=== PATIENT | female | born 1945 | race Caucasian/White ===

== ENCOUNTER 2019-05-25 09:36 | Outpatient (CLI) | payer MEDICARE, OTHER ==
--- NOTE | 2019-05-25 13:43 | CT ---
CT FACE WITH AND WITHOUT CONTRAST: Date: 05/25/2019 COMPARISON: None. HISTORY: Lesion of right mandibular ascending ramus associated with mandibular foramen. TECHNIQUE: Axial CT imaging at 2.5 mm intervals through the facial bones with and without IV contrast. Coronal a nd sagittal reformatted imaging obtained. FINDINGS: Partially imaged brain parenchymal grossly unremarkable. Frontal sinuses, maxillary sinuses, mastoid air cells, and sphenoid sinuses appear grossly unremarkable. There is asymmetric soft tissue density within the region of the sella turcica on the right with nona ation of the pituitary stalk to the left. This soft tissue density in the region of the pituitary gla nd on the right measures at least 1.7 cm in craniocaudal dimension. This abnormal soft tissue extends into the region of the cavernous sinus on the right, not optimally assessed on this examination. The retroantral and the parapharyngeal fat appears clear bilaterally. Mildly prominent but nonenlarged Level IIA nodes are present bilaterally. The mandibular foramen on the right is enlarged when compared to the left. There is associated thinni ng of the bone in this region with fat density within the expanded right mandibular foramen between t he thinned cortex and the neurovascular bundle. No enhancing soft tissue mass is seen in this region. This fat density measures 1.2 cm AP dimension and 1.6 cm in transverse dimension. No enhancing soft tissue component. No evidence for bone erosion or destruction. Imaged parotid and submandibular glands are unremarkable. Incompletely imaged anterior diskectomy and fusion hardware noted within the cervical spine. Multilev el upper cervical spine facet and uncovertebral osteophyte formation with no discrete lytic or blasti c bone lesion. IMPRESSION: 1. 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 Recomm end brain MRI with and without contrast using a pituitary mass protocol. 2. Mandibular foramen on the right is expanded with adjacent osseous thinning. The contents of this enlarged mandibular foramen demonstrate homogeneous fat density which suggests invagination of normal fat in this region and/or lipoma. No bone destruction or soft tissue component. CODE T. POS: OFF
[2019-05-25] MEDS ORDERED: Iopamidol 370 76% 100 ML VIAL ONE (14:40)
== END 2019-05-25 09:37 | disposition home or self-care (01) ==
LOC: CT 09:36
PROVIDERS: ATTEND Oral & Maxillofacial Surgery
DX: D16.5 Benign neoplasm of lower jaw bone (principal); M27.8 Other specified diseases of jaws
CPT/HCPCS: 70488; 82565; Q9967

== ENCOUNTER 2019-10-04 11:53 | Inpatient (IN) | payer MEDICARE, OTHER ==
--- NOTE | 2019-10-04 12:35 | RAD ---
EXAM: Single view of the chest HISTORY: Chest pain COMPARISON: None FINDINGS: Single view of the chest shows a normal sized cardiomediastinal silhouette. There is no dimtry dence of consolidation, mass, or pleural effusion. Degenerative changes and a spinal stimulation device are seen in the spine. IMPRESSION: No evidence of acute cardiopulmonary disease
[2019-10-04 12:58] LABS: #Monocytes 0.3 thou/uL (0.11-0.59); #Neutrophils 2.7 thou/uL (1.40-6.50); %Eosinophils 0.6 % (0.0-10.0); %Neutrophils 67.3 % (42.0-75.0); Hemoglobin 14.4 g/dL (12.0-16.0); Mean Corpuscular HGB CONC 33.7 g/dL (32.0-36.0); Mean Corpuscular Hemoglobin 29.2 pg (27.0-31.0); Mean Corpuscular Volume 86.8 fL (78.0-98.0); Mean Platelet Volume 7.5 fL (7.4-10.4); Platelet Count 180 thou/uL (130-400); RBC Distribution Width 13.5 % (11.5-14.5); Red Blood Cell (RBC) Count 4.92 mill/uL (4.20-5.40)
[2019-10-04] MEDS ORDERED: Enoxaparin Sodium 80 MG/0.8 ML SYRINGE ONE (13:07)
[2019-10-04 13:17] LABS: ALT (SGPT) 32 U/L (8-55); AST (SGOT) 44 U/L (5-34); Albumin 3.9 g/dL (3.4-4.8); Alkaline Phosphatase 121 U/L (40-110); Anion Gap 14 mmol/L (10-20); BUN (Urea Nitrogen) 11 mg/dL (9.8-20.1); Bilirubin, Total 0.6 mg/dL (0.2-1.2); Calc. Creatinine Clearance 0 mL/min (70-130); Calcium 8.9 mg/dL (7.8-10.44); Carbon Dioxide 28 mmol/L (23-31); Chloride 102 mmol/L (98-107); Estimated GFR-MDRD 73; Globulin 3.2 g/dL (2.4-3.5); Glucose 86 mg/dL (83-110); Potassium 3.5 mmol/L (3.5-5.1); Protein, Total 7.1 g/dL (6.0-8.3); Sodium 140 mmol/L (136-145)
[2019-10-04 13:55] LABS: Bilirubin Negative (Negative); Blood, Urine Negative (Negative); Clarity Clear (Clear); Glucose, Urine (Dipstick) Normal (Negative); Ketone, Urine Negative (Negative); Leukocyte Negative Leu/uL (Negative); Nitrite Negative (Negative); Protein, Urine (Dipstick) 20 mg/dL (Neg-Trace); Urobilinogen Normal mg/dL (Less than 2)
[2019-10-04 14:21] LABS: CKMB 0.8 ng/mL (0-6.6)
[2019-10-04 17:24] LABS: Troponin I 0.039 ng/mL (< 0.028)
[2019-10-04 20:47] LABS: Troponin I 0.049 ng/mL (< 0.028)
[2019-10-04] MEDS ORDERED: Acetaminophen 325 MG TAB PO PRN (21:14)
--- NOTE | 2019-10-04 22:25 | HP ---
PRIMARY CARE PHYSICIAN: Dr. Castillo in [place]. CHIEF COMPLAINT: Weakness. HISTORY OF PRESENT ILLNESS: The patient is a 73-year-old female with past medical history of high cholesterol and hypertension. She presents today after being sick with a cough last week. She went and saw her physician and received a Medrol Dosepak and a Z -Lopez which she finished both. Over the last week, her cough has gotten worse. She has been having to use numerous breathing treatments daily. In addition, she went and saw her physician in [place] and while there she became weak so they sent her to [facility]. While here in the ER, she was discovered to have new onset atrial fibrillation. She does say that her stomach has been more active today than it has been with diarrhea. She denies fever, sick contacts, chest pain, or shortness of breath. Today in the ER, they completed EKG, lab work, chest xray, and a COVID screen. PAST MEDICAL HISTORY: High cholesterol and hypertension. PAST SURGICAL HISTORY: Eight back surgeries, appendectomy, cholecystectomy, and hysterectomy. ALLERGIES: LEVAQUIN. MEDICATIONS: The patient is unable to recall her medications at this time, we will obtain the list. SOCIAL HISTORY: The patient is retired and lives in a house with her . She denies smoking, alcohol, or illicit drug use. FAMILY HISTORY: Negative for any pertinent information at this time. REVIEW OF SYSTEMS: All other review of systems are negative unless noted in the HPI. PHYSICAL EXAMINATION: VITAL SIGNS: Blood pressure 145/90, pulse 95, respiratory rate 24, temperature 98.7, O2 saturation 96% on 2 L. GENERAL: The patient is alert and oriented. Appears nontoxic. HEENT: Head; atraumatic and normocephalic. PERRLA. Extraocular muscles intact. Conjunctiva normal. NECK: No lymphadenopathy. Trachea midline. Supple. RESPIRATORY: Clear to auscultation bilaterally. No wheezing. No rales. No rhonchi. Normal chest expansion. CARDIOVASCULAR: Irregular rate and rhythm. Slightly tachycardic. No murmurs. No rubs. No gallops. ABDOMEN: Hyperactive bowel sounds. Nontender. No distention. No masses. EXTREMITIES: No cyanosis. No clubbing. No edema. NEUROLOGIC: No focal sensory deficits. PSYCH: Normal affect. Normal behavior. LABORATORY STUDIES: EKG showed rate of 86, atrial fibrillation. Troponin 0.037 , CK-MB 0.8. UA was negative for signs of acute UTI. Sodium 140, potassium 3.5, BUN 11, creatinine 0.77, GFR 73, alkaline phosphatase 121, AST 44, lactic acid 1.2. White blood cells 4, hemoglobin 14.4, hematocrit 42.7. DIAGNOSTIC STUDIES: Chest x-ray showed no evidence of acute cardiopulmonary disease. IMPRESSION: 1. New onset afib, acute. We will consult Cardiology and start the patient on Lovenox 1 mcg/kg twice daily. We will also obtain an echo in the morning and monitor her on telemetry overnight. 2. Malaise, acute. COVID swab pending at this time. We will monitor patient's vital signs throughout the night. Denies any sick contacts. Start her on treatment if her swab comes out positive. Her was also checked in the ER today for same symptoms and was also tested for COVID. 3. Hyperlipidemia, chronic, stable. Continue home medications. 4. Hypertension, chronic, stable. We will continue home medications and continue to monitor throughout the evening. 5. GI and DVT prophylaxis in place. 6. The patient wishes to be full code and her surrogate decision maker is her . Job ID: [id number] [facility]
[2019-10-04] MEDS ORDERED: Enoxaparin Sodium 80 MG/0.8 ML SYRINGE SC SCH (23:00)
[2019-10-04] MEDS ORDERED: Famotidine 20 MG TAB PO SCH (23:00)
[2019-10-04 23:03] VITALS: BMI 32.6
[2019-10-04 23:39] LABS: Troponin I 0.039 ng/mL (< 0.028)
[2019-10-05] MEDS: HYDROcodone/Acetaminophen 7.5/325 mg Tablet PO PRN ×4 (00:22→21:14)
[2019-10-05] MEDS ORDERED: Loperamide HCl 2 MG CAP PO SCH (01:30)
[2019-10-05 05:12] LABS: #Lymphocytes 1.3 thou/uL (1.20-3.40); #Monocytes 0.3 thou/uL (0.11-0.59); #Neutrophils 2.2 thou/uL (1.40-6.50); %Basophils 0.8 % (0.0-1.0); %Eosinophils 0.8 % (0.0-10.0); %Lymphocytes 34.5 % (21.0-51.0); %Monocytes 8.3 % (0.0-10.0); %Neutrophils 55.6 % (42.0-75.0); Hemoglobin 13.5 g/dL (12.0-16.0); Mean Corpuscular HGB CONC 34.6 g/dL (32.0-36.0); Mean Corpuscular Hemoglobin 29.8 pg (27.0-31.0); Mean Corpuscular Volume 86.1 fL (78.0-98.0); Mean Platelet Volume 8.1 fL (7.4-10.4); Platelet Count 179 thou/uL (130-400); RBC Distribution Width 13.4 % (11.5-14.5); Red Blood Cell (RBC) Count 4.52 mill/uL (4.20-5.40); White Blood Cell (WBC) Count 3.9 thou/uL (4.8-10.8)
[2019-10-05] MEDS: Levothyroxine Sodium 75 MCG TAB PO SCH (05:25)
[2019-10-05 05:31] LABS: Anion Gap 12 mmol/L (10-20); BUN (Urea Nitrogen) 10 mg/dL (9.8-20.1); CRP (Inflammatory) 8.84 mg/dL (= or < 0.5); Calc. Creatinine Clearance 98 mL/min (70-130); Calcium 8.3 mg/dL (7.8-10.44); Carbon Dioxide 25 mmol/L (23-31); Chloride 104 mmol/L (98-107); Estimated GFR-MDRD 82; Glucose 84 mg/dL (83-110); Sodium 138 mmol/L (136-145)
[2019-10-05 05:38] LABS: Potassium 2.8 mmol/L (3.5-5.1)
[2019-10-05] MEDS: Famotidine 20 MG TAB PO SCH ×2 (08:37→19:45)
[2019-10-05] MEDS: Potassium Chloride 20 MEQ TAB PO SCH ×2 (08:37→09:02)
[2019-10-05] MEDS ORDERED: Enoxaparin Sodium 80 MG/0.8 ML SYRINGE SC SCH (09:00)
[2019-10-05] MEDS ORDERED: Potassium Chloride 20 MEQ TAB PO SCH (12:00)
[2019-10-05 12:29] LABS: SARS-CoV-2 MS2 Positive; SARS-CoV-2 N Gene Positive; SARS-CoV-2 S Gene Positive; SARS-CoV-2 orf1ab Positive
[2019-10-05] MEDS ORDERED: Dexamethasone 10 MG/ML VIAL SLOW IVP SCH ×2 (13:00→15:30)
[2019-10-05 13:39] LABS: Anion Gap 15 mmol/L (10-20); BUN (Urea Nitrogen) 11 mg/dL (9.8-20.1); Calc. Creatinine Clearance 95 mL/min (70-130); Calcium 8.8 mg/dL (7.8-10.44); Carbon Dioxide 24 mmol/L (23-31); Chloride 104 mmol/L (98-107); Estimated GFR-MDRD 79; Glucose 92 mg/dL (83-110); Magnesium 1.8 mg/dL (1.6-2.6); Sodium 139 mmol/L (136-145)
--- NOTE | 2019-10-05 16:29 | PDOC.HOSPP ---
- Subjective Encounter Date: 10/05/19 Encounter Time: 10:00 Subjective: pt up in bed is having diarrhea. - Objective Vital Signs & Weight: Vital Signs (12 hours) Temp Pulse Resp BP Pulse Ox 10/05/19 12:00 98.6 F 69 14 154/72 H 96 10/05/19 08:45 99.0 F 64 18 153/67 H 95 10/05/19 05:31 98.2 F 64 20 147/70 H 95 Weight Weight 190 lb 4.8 oz Result Diagrams: 10/05/19 04:34 10/05/19 13:04 Hospitalist ROS - Review of Systems Respiratory: denies: cough, dry, shortness of breath, hemoptysis, SOB with excertion, pleuritic pain, sputum, wheezing, other Cardiovascular: denies: chest pain, palpitations, orthopnea, paroxysmal noc. dyspnea, edema, light headedness, other Gastrointestinal: reports: diarrhea Genitourinary: denies: dysuria, frequency, incontinence, hematuria, retention, other Musculoskeletal: denies: neck pain, shoulder pain, arm pain, back pain, hand pain, leg pain, foot pain, other - Medication Medications: Active Medications Generic Name Dose Route Start Last Admin Trade Name Freq PRN Reason Stop Dose Admin Hydrocodone Bitart/Acetaminophen 1 tab 10/05/19 00:01 10/05/19 15:50 [place] 7.5/325 PO 1 tab Q6HR PRN Administration Moderate Pain (4-6) Dexamethasone 10 mg 10/05/19 15:30 10/05/19 15:37 Decadron SLOW IVP 10/05/19 17:30 10 mg NOW LOYDA Administration Enoxaparin Sodium 80 mg 10/05/19 09:00 10/05/19 08:38 Lovenox SC 80 mg 0900,2100 LOYDA Administration Famotidine 20 mg 10/05/19 09:00 10/05/19 08:37 Pepcid PO 20 mg BID LOYDA Administration Levothyroxine Sodium 75 mcg 10/05/19 06:00 10/05/19 05:25 Synthroid PO 75 mcg 0600 LOYDA Administration Sertraline HCl 100 mg 10/05/19 09:00 10/05/19 08:38 Zoloft PO 100 mg BID LOYDA Administration - Exam Neck: negative: supple, symmetric, no JVD, no thyromegaly, no lymphadenopathy, no carotid bruit, JVD Heart: negative: RRR, no murmur, no gallops, no rubs, normal peripheral pulses, irregular, diminshed peripheral pulses, murmur present, II/IV, III/IV Respiratory: rales Gastrointestinal: negative: soft, non-tender, non-distended, normal bowel sounds , no palpable masses, no hepatomegaly, no splenomegaly, no bruit, no guarding, no rigidity, tender to palpation, distended, diminished bowl sounds, voluntary guarding Hosp A/P (1) COVID-19 Code(s): U07.1 - COVID-19 Status: Acute (2) New onset a-fib Code(s): I48.91 - UNSPECIFIED ATRIAL FIBRILLATION Status: Acute (3) Hypothyroid Code(s): E03.9 - HYPOTHYROIDISM, UNSPECIFIED Status: Acute - Plan will continue current tx with dexamethasone/vit c and zinc. pt does not take steroids at home. will change Lovenox to eliquis. pt now is SR.
[2019-10-05] MEDS: Apixaban 5 MG TAB PO SCH (19:45)
[2019-10-05] MEDS ORDERED: tiZANidine HCl 4 MG TAB PO SCH (20:45)
[2019-10-05] MEDS ORDERED: Prevnar 13-Val Conj/PF 0.5 ML SYRINGE IM ONE (21:00)
[2019-10-06 01:30] LABS: Anion Gap 13 mmol/L (10-20); BUN (Urea Nitrogen) 12 mg/dL (9.8-20.1); Calc. Creatinine Clearance 90 mL/min (70-130); Calcium 8.6 mg/dL (7.8-10.44); Carbon Dioxide 23 mmol/L (23-31); Chloride 104 mmol/L (98-107); Estimated GFR-MDRD 75; Glucose 199 mg/dL (83-110); Magnesium 1.9 mg/dL (1.6-2.6); Potassium 3.8 mmol/L (3.5-5.1); Sodium 136 mmol/L (136-145)
[2019-10-06 04:28] LABS: Hemoglobin 12.5 g/dL (12.0-16.0); Platelet Count 180 thou/uL (130-400)
[2019-10-06 04:53] LABS: Troponin I 0.016 ng/mL (< 0.028)
[2019-10-06] MEDS: Levothyroxine Sodium 75 MCG TAB PO SCH (05:33)
[2019-10-06] MEDS ORDERED: predniSONE 5 MG TAB PO SCH (08:00)
[2019-10-06] MEDS: Hydrochlorothiazide 25 MG TAB PO SCH (09:01)
[2019-10-06] MEDS: Zinc Sulfate 220 MG CAP PO SCH (09:01)
[2019-10-06] MEDS: Apixaban 5 MG TAB PO SCH (09:01)
[2019-10-06] MEDS: Ezetimibe 10 MG TAB PO SCH (09:01)
[2019-10-06] MEDS: Famotidine 20 MG TAB PO SCH (09:01)
[2019-10-06] MEDS: Dexamethasone 4 MG TAB PO SCH (09:01)
[2019-10-06] MEDS: Rosuvastatin 10 MG TAB PO SCH (09:01)
[2019-10-06] MEDS: Furosemide 40 MG TAB PO SCH (09:02)
[2019-10-06] MEDS: Ascorbic Acid 500 mg Chewable Tablet PO SCH (09:02)
[2019-10-06] MEDS ORDERED: Atropine Sulfate 1 mg/10 ml Syringe IVP PRN ×2 (12:45→15:46)
--- NOTE | 2019-10-06 15:08 | CON ---
DATE OF CONSULTATION: HISTORY OF PRESENT ILLNESS: Anita Saravia is a 73-year-old white female from [place], [place], who presented to the emergency room for evaluation of cough and feeling poorly for the past week. She was given a Medrol Dosepak and a Z-Lopez by her doctor in [place]. She continued to have cough and then started to have significant diarrhea. She denies any significant fever. She came to the emergency room as her daughter works at the hospital here and was in atrial fibrillation. It is unclear if she developed that while in the ER or if she presented with that. Her rates were fairly well controlled and as best I can tell from looking through the medical record, she was not placed on any specific treatment for that. She was tested positive for COVID. She did have an episode of significant tachycardia with rates of 160 to 190 per minute with the atrial fibrillation on 10/03 at 2327 hours. She was trying to have a bowel movement at the time. Apparently, this resolved without any treatment. Then on 10/04 at 3:35 a.m., she went to sinus rhythm. She then had an episode early this morning on 10/05 at 0046 hours. She states she became very weak, diaphoretic, and EKG shows a heart rate of 39 per minute with extreme sinus bradycardia. At home, she denies ever having any lightheadedness, dizziness, or syncopal episodes. She denies feeling any palpitations at home. She denies any chest discomfort. She does have mild shortness of breath. PAST MEDICAL HISTORY: 1. Hypercholesterolemia. 2. Hypertension. 3. Hypothyroidism. OPERATIONS: 1. Multiple back surgeries. 2. Appendectomy. 3. Cholecystectomy. 4. Hysterectomy. HOME MEDICATIONS: 1. Vitamin D3 at 1000 units daily. 2. Esomeprazole 40 mg daily. 3. Zetia 10 mg daily. 4. Furosemide 40 mg q.a.m. 5. Hydrochlorothiazide 25 q.a.m. 6. Vanderbilt p.r.n. 7. Levoxyl 75 mcg daily. 8. Prednisone 10 mg daily. 9. Rosuvastatin 10 mg daily. 10. Zoloft 100 mg b.i.d. 11. Tizanidine 4 mg q.8 h. p.r.n. ALLERGIES: LEVAQUIN. SOCIAL HISTORY: She has never smoked. She does not drink. FAMILY HISTORY: Father had coronary artery disease. REVIEW OF SYSTEMS: A 10-point review of systems unremarkable except as noted above. PHYSICAL EXAMINATION: VITAL SIGNS: Blood pressure 165/74 and pulse of 51. HEENT: PERRL. NECK: Supple. CHEST: Clear. CARDIAC: S1 and S2 are normal without any S3 or S4. There is a 1/6 systolic murmur along the left sternal border. ABDOMEN: Normal bowel sounds without tenderness or organomegaly. EXTREMITIES: No clubbing, cyanosis, or edema. NEUROLOGIC: Grossly intact. LABORATORY DATA: Most recent EKG when she was diaphoretic had sinus rhythm with a rate of 39 per minute with poor R-wave progression. CBC is unremarkable except for a white count of 3900. D-dimer 1.43. -Troponin I is as high as 0.049. TSH is normal. Glucose 199, sodium 136, potassium 3.8, chloride 104, carbon dioxide 23 , BUN 12, and creatinine 0.76. She did have a potassium of 2.8 the day after admission. IMPRESSION: 1. COVID positive with cough and diarrhea. Main symptoms are cough and diarrhea. The diarrhea appears to have resolved from what the patient stating. 2. Sick sinus syndrome with episode of atrial fibrillation when she presented with very fast rates when she was having a bowel movement. She also has had significant bradycardia, which historically does not sound as if she has had problems with this in the past. 3. Hypertension. 4. Hypercholesterolemia. 5. Hypothyroidism. RECOMMENDATIONS: The patient currently is on Eliquis and I will change this back to Lovenox, so that in case pacemaker is needed, we would not have to wait 48 hours. Certainly, near the time of discharge, the Eliquis should probably be resumed. Also, I will have atropine placed into her room. She may need to be placed on low-dose dobutamine. Certainly, her bradycardia may be related to the COVID, however, it is unclear to me if this is a permanent finding or just temporary bradycardia during the infectious process. When she has resolved from COVID, we will further evaluate this problem. Job ID: [id number] [facility]TDD
[2019-10-06] MEDS: HYDROcodone/Acetaminophen 7.5/325 mg Tablet PO PRN ×2 (17:04→23:01)
[2019-10-06] MEDS: Enoxaparin Sodium 80 MG/0.8 ML SYRINGE SC SCH (20:05)
[2019-10-07] MEDS: Levothyroxine Sodium 75 MCG TAB PO SCH (05:26)
[2019-10-07] MEDS: HYDROcodone/Acetaminophen 7.5/325 mg Tablet PO PRN ×2 (05:26→20:34)
[2019-10-07] MEDS: Ezetimibe 10 MG TAB PO SCH (07:43)
[2019-10-07] MEDS: Dexamethasone 4 MG TAB PO SCH (07:43)
[2019-10-07] MEDS: Enoxaparin Sodium 80 MG/0.8 ML SYRINGE SC SCH ×2 (07:43→20:22)
[2019-10-07] MEDS: Furosemide 40 MG TAB PO SCH (07:44)
[2019-10-07] MEDS: Rosuvastatin 10 MG TAB PO SCH (07:44)
[2019-10-07] MEDS: Hydrochlorothiazide 25 MG TAB PO SCH (07:44)
[2019-10-07] MEDS: Ascorbic Acid 500 mg Chewable Tablet PO SCH (07:44)
[2019-10-07] MEDS: Zinc Sulfate 220 MG CAP PO SCH (07:49)
--- NOTE | 2019-10-07 09:42 | PDOC.HOSPP ---
- Subjective Encounter Date: 10/06/19 Encounter Time: 10:30 Subjective: pt up in bed states her diarrhea has improved but she had bradycardia. - Objective Vital Signs & Weight: Vital Signs (12 hours) Temp Pulse Resp BP BP BP BP 10/07/19 08:00 98.5 F 49 L 18 179/75 H 10/07/19 05:35 172/77 H 162/66 H 161/74 H 10/07/19 04:03 98.0 F 54 L 14 163/71 H 10/06/19 23:05 98.6 F 49 L 17 172/72 H Pulse Ox 10/07/19 08:00 93 L 10/07/19 05:35 10/07/19 04:03 94 L 10/06/19 23:05 93 L Weight Weight 190 lb 4.8 oz I&O: 10/06/19 10/07/19 10/08/19 06:59 06:59 06:59 Intake Total 700 250 Balance 700 250 Result Diagrams: 10/06/19 04:15 10/06/19 04:15 Hospitalist ROS - Review of Systems Cardiovascular: denies: chest pain, palpitations, orthopnea, paroxysmal noc. dyspnea, edema, light headedness, other Gastrointestinal: denies: nausea, vomiting, abdominal pain, diarrhea, constipation, melena, hematochezia, other Genitourinary: denies: dysuria, frequency, incontinence, hematuria, retention, other - Medication Medications: Active Medications Generic Name Dose Route Start Last Admin Trade Name Freq PRN Reason Stop Dose Admin Hydrocodone Bitart/Acetaminophen 1 tab 10/05/19 00:01 10/07/19 05:26 [place] 7.5/325 PO 1 tab Q6HR PRN Administration Moderate Pain (4-6) Ascorbic Acid 1,000 mg 10/06/19 09:00 10/07/19 07:44 Vitamin C PO 1,000 mg DAILY LOYDA Administration Dexamethasone 6 mg 10/06/19 08:00 10/07/19 07:43 Decadron PO 10/15/19 08:01 6 mg QAM-WM LOYDA Administration Ezetimibe 10 mg 10/06/19 09:00 10/07/19 07:43 Zetia PO 10 mg DAILY LOYDA Administration Enoxaparin Sodium 80 mg 10/06/19 21:00 10/07/19 07:43 Lovenox SC 80 mg 0900,2100 LOYDA Administration Furosemide 40 mg 10/06/19 09:00 10/07/19 07:44 Lasix PO 40 mg DAILY LOYDA Administration Hydrochlorothiazide 25 mg 10/06/19 09:00 10/07/19 07:44 Hydrochlorothiazide PO 25 mg DAILY LOYDA Administration Levothyroxine Sodium 75 mcg 10/05/19 06:00 10/07/19 05:26 Synthroid PO 75 mcg 0600 LOYDA Administration Pantoprazole Sodium 40 mg 10/07/19 09:00 10/07/19 07:44 Protonix PO 40 mg DAILY LOYDA Administration Rosuvastatin Calcium 10 mg 10/06/19 09:00 10/07/19 07:44 Crestor PO 10 mg DAILY LODYA Administration Sertraline HCl 100 mg 10/05/19 09:00 10/07/19 07:45 Zoloft PO 100 mg BID LOYDA Administration Zinc Sulfate 220 mg 10/06/19 09:00 10/07/19 07:49 Zinc Sulfate PO 220 mg DAILY LOYDA Administration - Exam Neck: negative: supple, symmetric, no JVD, no thyromegaly, no lymphadenopathy, no carotid bruit, JVD Heart: negative: RRR, no murmur, no gallops, no rubs, normal peripheral pulses, irregular, diminshed peripheral pulses, murmur present, II/IV, III/IV Respiratory: negative: CTAB, no wheezes, no rales, no ronchi, normal chest expansion, no tachypnea, normal percussion, rales, rhonchi, tachypneic, wheezes Gastrointestinal: negative: soft, non-tender, non-distended, normal bowel sounds , no palpable masses, no hepatomegaly, no splenomegaly, no bruit, no guarding, no rigidity, tender to palpation, distended, diminished bowl sounds, voluntary guarding Hosp A/P (1) COVID-19 Code(s): U07.1 - COVID-19 Status: Acute (2) New onset a-fib Code(s): I48.91 - UNSPECIFIED ATRIAL FIBRILLATION Status: Acute (3) Hypothyroid Code(s): E03.9 - HYPOTHYROIDISM, UNSPECIFIED Status: Acute - Plan will continue current tx with dexamethasone/vit c and zinc. pt does not take steroids at home. will change Lovenox to eliquis. pt now is SR. 10/05 pt was bradycardiac last night and symptomatic. pt's diarrhea is improving. will call cardiology to see pt. she is not on any bb or calcium kevin. she is on AC. pt may need pacemaker. Pt's crp is improving and clinically she feels better in regards to sob.
[2019-10-07] MEDS ORDERED: Lisinopril 10 MG TAB PO SCH (12:45)
--- NOTE | 2019-10-07 19:32 | PDOC.HOSPP ---
- Subjective Encounter Date: 10/07/19 Encounter Time: 12:30 Subjective: pt up in bed feels well - Objective Vital Signs & Weight: Vital Signs (12 hours) Temp Pulse Resp BP Pulse Ox 10/07/19 12:35 98.4 F 58 L 18 155/72 H 90 L 10/07/19 08:00 98.5 F 49 L 18 179/75 H 93 L Weight Weight 190 lb 4.8 oz I&O: 10/06/19 10/07/19 10/08/19 06:59 06:59 06:59 Intake Total 700 250 Balance 700 250 Result Diagrams: 10/06/19 04:15 10/06/19 04:15 Hospitalist ROS - Review of Systems Cardiovascular: denies: chest pain, palpitations, orthopnea, paroxysmal noc. dyspnea, edema, light headedness, other Gastrointestinal: denies: nausea, vomiting, abdominal pain, diarrhea, constipation, melena, hematochezia, other Genitourinary: denies: dysuria, frequency, incontinence, hematuria, retention, other - Medication Medications: Active Medications Generic Name Dose Route Start Last Admin Trade Name Freq PRN Reason Stop Dose Admin Hydrocodone Bitart/Acetaminophen 1 tab 10/05/19 00:01 10/07/19 05:26 [place] 7.5/325 PO 1 tab Q6HR PRN Administration Moderate Pain (4-6) Ascorbic Acid 1,000 mg 10/06/19 09:00 10/07/19 07:44 Vitamin C PO 1,000 mg DAILY LOYDA Administration Dexamethasone 6 mg 10/06/19 08:00 10/07/19 07:43 Decadron PO 10/15/19 08:01 6 mg QAM-WM LOYDA Administration Ezetimibe 10 mg 10/06/19 09:00 10/07/19 07:43 Zetia PO 10 mg DAILY LOYDA Administration Enoxaparin Sodium 80 mg 10/06/19 21:00 10/07/19 07:43 Lovenox SC 80 mg 0900,2100 LOYDA Administration Furosemide 40 mg 10/06/19 09:00 10/07/19 07:44 Lasix PO 40 mg DAILY LOYDA Administration Levothyroxine Sodium 75 mcg 10/05/19 06:00 10/07/19 05:26 Synthroid PO 75 mcg 0600 LOYDA Administration Pantoprazole Sodium 40 mg 10/07/19 09:00 10/07/19 07:44 Protonix PO 40 mg DAILY LOYDA Administration Rosuvastatin Calcium 10 mg 10/06/19 09:00 10/07/19 07:44 Crestor PO 10 mg DAILY LOYDA Administration Sertraline HCl 100 mg 10/05/19 09:00 10/07/19 07:45 Zoloft PO 100 mg BID LOYDA Administration Zinc Sulfate 220 mg 10/06/19 09:00 10/07/19 07:49 Zinc Sulfate PO 220 mg DAILY LOYDA Administration - Exam Neck: negative: supple, symmetric, no JVD, no thyromegaly, no lymphadenopathy, no carotid bruit, JVD Heart: negative: RRR, no murmur, no gallops, no rubs, normal peripheral pulses, irregular, diminshed peripheral pulses, murmur present, II/IV, III/IV Respiratory: negative: CTAB, no wheezes, no rales, no ronchi, normal chest expansion, no tachypnea, normal percussion, rales, rhonchi, tachypneic, wheezes Gastrointestinal: negative: soft, non-tender, non-distended, normal bowel sounds , no palpable masses, no hepatomegaly, no splenomegaly, no bruit, no guarding, no rigidity, tender to palpation, distended, diminished bowl sounds, voluntary guarding Hosp A/P (1) COVID-19 Code(s): U07.1 - COVID-19 Status: Acute (2) New onset a-fib Code(s): I48.91 - UNSPECIFIED ATRIAL FIBRILLATION Status: Acute (3) Hypothyroid Code(s): E03.9 - HYPOTHYROIDISM, UNSPECIFIED Status: Acute (4) Bradycardia Code(s): R00.1 - BRADYCARDIA, UNSPECIFIED Status: Acute - Plan will continue current tx with dexamethasone/vit c and zinc. pt does not take steroids at home. will change Lovenox to eliquis. pt now is SR. 10/05 pt was bradycardiac last night and symptomatic. pt's diarrhea is improving. will call cardiology to see pt. she is not on any bb or calcium kevin. she is on AC. pt may need pacemaker. Pt's crp is improving and clinically she feels better in regards to sob. 10/06 pt clinically doing well she is still SB. cardiology following pt. she may need pacemaker. Atropine at bedside. she is on lovenox.
[2019-10-07] MEDS: Lisinopril 10 MG TAB PO SCH (20:23)
[2019-10-08 05:12] LABS: ALT (SGPT) 28 U/L (8-55); AST (SGOT) 34 U/L (5-34); Albumin 4.3 g/dL (3.4-4.8); Alkaline Phosphatase 117 U/L (40-110); Anion Gap 15 mmol/L (10-20); BUN (Urea Nitrogen) 30 mg/dL (9.8-20.1); Bilirubin, Total 0.7 mg/dL (0.2-1.2); Calc. Creatinine Clearance 60 mL/min (70-130); Calcium 9.6 mg/dL (7.8-10.44); Carbon Dioxide 35 mmol/L (23-31); Cardiac Risk 4.3 (Less than 4.5); Chloride 95 mmol/L (98-107); Cholesterol 145 mg/dl (< 200 Desired); Estimated GFR-MDRD 47; Globulin 3.3 g/dL (2.4-3.5); Glucose 95 mg/dL (83-110); HDL Cholesterol 34 mg/dL (>60 Neg Risk); LDL Cholesterol, Calculated 47 mg/dL; Protein, Total 7.6 g/dL (6.0-8.3); Sodium 142 mmol/L (136-145); Triglycerides 318 mg/dL (Less than 150)
[2019-10-08] MEDS: Levothyroxine Sodium 75 MCG TAB PO SCH (05:48)
[2019-10-08] MEDS: Enoxaparin Sodium 80 MG/0.8 ML SYRINGE SC SCH ×2 (08:03→19:43)
[2019-10-08] MEDS: Ezetimibe 10 MG TAB PO SCH (08:03)
[2019-10-08] MEDS: Ascorbic Acid 500 mg Chewable Tablet PO SCH (08:03)
[2019-10-08] MEDS: Dexamethasone 4 MG TAB PO SCH (08:04)
[2019-10-08] MEDS: Furosemide 40 MG TAB PO SCH (08:04)
[2019-10-08] MEDS: Lisinopril 10 MG TAB PO SCH (08:04)
[2019-10-08] MEDS: Rosuvastatin 10 MG TAB PO SCH (08:04)
[2019-10-08] MEDS: Zinc Sulfate 220 MG CAP PO SCH (08:07)
--- NOTE | 2019-10-08 18:53 | PDOC.HOSPP ---
- Subjective Encounter Date: 10/08/19 Encounter Time: 18:40 Subjective: f/u for COVID PNA stabilizing on RA. Noted with bradycardia and monitored on tele. No new symptoms noted. KIAH noted after starting Lisinopril. - Objective Vital Signs & Weight: Vital Signs (12 hours) Temp Pulse Resp BP Pulse Ox 10/08/19 12:45 98.5 F 58 L 18 127/65 91 L 10/08/19 08:00 98.5 F 60 16 107/58 L 92 L Weight Weight 190 lb 4.8 oz I&O: 10/07/19 10/08/19 10/09/19 06:59 06:59 06:59 Intake Total 250 Balance 250 Result Diagrams: 10/06/19 04:15 10/08/19 04:09 Additional Labs: Accuchecks 10/07/19 20:38 POC Glucose 120 H Laboratory Tests 10/04/19 10/04/19 10/05/19 12:38 22:27 04:34 D-Dimer Lactic Acid 1.2 Ferritin C-Reactive Protein 8.84 H COVID-19 PCR DETECTED A* 10/05/19 10/05/19 10/06/19 04:34 04:34 04:15 D-Dimer 2.13 H Lactic Acid Ferritin 191.81 C-Reactive Protein 5.00 H COVID-19 PCR 10/06/19 10/06/19 04:15 04:16 D-Dimer 1.43 H Lactic Acid Ferritin 230.08 C-Reactive Protein COVID-19 PCR EKG Reviewed by me: Yes (Tele - sinus eva in 50-60's) Hospitalist ROS - Medication Medications: Active Medications Generic Name Dose Route Start Last Admin Trade Name Freq PRN Reason Stop Dose Admin Hydrocodone Bitart/Acetaminophen 1 tab 10/05/19 00:01 10/07/19 20:34 [place] 7.5/325 PO 1 tab Q6HR PRN Administration Moderate Pain (4-6) Ascorbic Acid 1,000 mg 10/06/19 09:00 10/08/19 08:03 Vitamin C PO 1,000 mg DAILY LOYDA Administration Dexamethasone 6 mg 10/06/19 08:00 10/08/19 08:04 Decadron PO 10/15/19 08:01 6 mg QAM-WM LOYDA Administration Ezetimibe 10 mg 10/06/19 09:00 10/08/19 08:03 Zetia PO 10 mg DAILY LOYDA Administration Enoxaparin Sodium 80 mg 10/06/19 21:00 10/08/19 08:03 Lovenox SC 80 mg 0900,2100 LOYDA Administration Furosemide 40 mg 10/06/19 09:00 10/08/19 08:04 Lasix PO 40 mg DAILY LOYDA Administration Levothyroxine Sodium 75 mcg 10/05/19 06:00 10/08/19 05:48 Synthroid PO 75 mcg 0600 LOYDA Administration Pantoprazole Sodium 40 mg 10/07/19 09:00 10/08/19 08:04 Protonix PO 40 mg DAILY LOYDA Administration Rosuvastatin Calcium 10 mg 10/06/19 09:00 10/08/19 08:04 Crestor PO 10 mg DAILY LOYDA Administration Sertraline HCl 100 mg 10/05/19 09:00 10/08/19 08:04 Zoloft PO 100 mg BID LOYDA Administration Zinc Sulfate 220 mg 10/06/19 09:00 10/08/19 08:07 Zinc Sulfate PO 220 mg DAILY LOYDA Administration - Exam General Appearance: NAD, awake alert Eye: PERRL, anicteric sclera ENT: normocephalic atraumatic, no oropharyngeal lesions Neck: supple, symmetric, no JVD, no thyromegaly, no lymphadenopathy Heart: RRR, no gallops, no rubs, normal peripheral pulses Heart - other findings: S1, S2 Respiratory: CTAB, no wheezes, no rales, no ronchi, normal chest expansion Gastrointestinal: soft, non-tender, non-distended, normal bowel sounds, no palpable masses Extremities: no cyanosis, no clubbing, no edema Skin: normal turgor, no lesions Neurological: cranial nerve grossly intact, no new deficit Musculoskeletal: normal tone, normal strength, no muscle wasting Psychiatric: normal affect, A&O x 3 Hosp A/P (1) KIAH (acute kidney injury) Code(s): N17.9 - ACUTE KIDNEY FAILURE, UNSPECIFIED Status: Acute Plan: Start NS @ 75ml/h, decrease Lisinopril 10mg daily, avoid nephrotoxins and limit contrast exposure, repeat creatinine in am (2) Hypokalemia Code(s): E87.6 - HYPOKALEMIA Status: Acute Plan: KCL 40meq x 1 now and 20meq BID in am, repeat K+ level in am (3) Bradycardia Code(s): R00.1 - BRADYCARDIA, UNSPECIFIED Status: Acute Plan: Mild bradycardia, ? symptomatic (4) COVID-19 Code(s): U07.1 - COVID-19 Status: Acute Plan: Improving, supportive, no O2 requirement - Plan out of bed/ambulate, DVT proph w/SCDs Stable overall Decrease Lisinopril 10mg daily Start NS @ 75ml/hr OOB/ambulate AM lab: BMP Likely home in am
[2019-10-08] MEDS ORDERED: Potassium Chloride 20 MEQ TAB PO SCH (19:00)
[2019-10-08] MEDS: Sodium Chloride 0.9% 1,000 ML IV SCH (19:43)
[2019-10-08] MEDS: HYDROcodone/Acetaminophen 7.5/325 mg Tablet PO PRN (20:07)
[2019-10-09] MEDS: Levothyroxine Sodium 75 MCG TAB PO SCH (04:15)
[2019-10-09] MEDS: HYDROcodone/Acetaminophen 7.5/325 mg Tablet PO PRN (04:23)
[2019-10-09 05:02] LABS: Anion Gap 12 mmol/L (10-20); BUN (Urea Nitrogen) 30 mg/dL (9.8-20.1); Calc. Creatinine Clearance 74 mL/min (70-130); Carbon Dioxide 32 mmol/L (23-31); Chloride 99 mmol/L (98-107); Estimated GFR-MDRD 60; Glucose 90 mg/dL (83-110); Sodium 140 mmol/L (136-145)
[2019-10-09 05:06] LABS: Potassium 2.9 mmol/L (3.5-5.1)
[2019-10-09 06:09] LABS: Hemoglobin 14.1 g/dL (12.0-16.0); Platelet Count 240 thou/uL (130-400)
[2019-10-09] MEDS: Rosuvastatin 10 MG TAB PO SCH (07:44)
[2019-10-09] MEDS: Dexamethasone 4 MG TAB PO SCH (07:44)
[2019-10-09] MEDS: Ascorbic Acid 500 mg Chewable Tablet PO SCH (07:45)
[2019-10-09] MEDS: Zinc Sulfate 220 MG CAP PO SCH (07:45)
[2019-10-09] MEDS: Ezetimibe 10 MG TAB PO SCH (07:45)
[2019-10-09] MEDS: Enoxaparin Sodium 80 MG/0.8 ML SYRINGE SC SCH (07:46)
[2019-10-09] MEDS: Potassium Chloride 20 MEQ TAB PO SCH ×2 (07:46→16:06)
[2019-10-09] MEDS: Furosemide 40 MG TAB PO SCH (07:46)
[2019-10-09] MEDS: Sodium Chloride 0.9% 1,000 ML IV SCH (07:46)
[2019-10-09] MEDS ORDERED: Lisinopril 10 MG TAB PO SCH (09:00)
[2019-10-09] MEDS ORDERED: Potassium Chloride 20 MEQ TAB PO SCH (09:45)
[2019-10-09 15:05] LABS: Anion Gap 13 mmol/L (10-20); BUN (Urea Nitrogen) 26 mg/dL (9.8-20.1); Calc. Creatinine Clearance 76 mL/min (70-130); Carbon Dioxide 29 mmol/L (23-31); Chloride 101 mmol/L (98-107); Estimated GFR-MDRD 61; Glucose 145 mg/dL (83-110); Potassium 3.3 mmol/L (3.5-5.1); Sodium 140 mmol/L (136-145)
[2019-10-09 16:39] VITALS: BP 152/72; TEMP 98.5
--- NOTE | 2019-10-10 03:44 | DIS ---
DATE OF ADMISSION: 10/04/2019 DATE OF DISCHARGE: 10/09/2019 DISCHARGE DIAGNOSES: 1. COVID-19 viral infection. 2. Paroxysmal atrial fibrillation with current sinus mechanism. 3. Sinus bradycardia, stable. 4. Hypothyroidism. 5. Hypokalemia, resolving. 6. Acute kidney injury, iatrogenic. 7. Hypertension. CONSULTATIONS: Dr. Torres and Dr. Wheeler with Cardiology Service. PERTINENT LABORATORY AND X-RAY FINDINGS: Sodium ranged between 2.8 to 4.0. Creatinine ranged between 0.70 to 1.13. Estimated GFR ranged between 47 to 82, ferritin ranged between 192 to 230. CRP ranged between 5.0 to 8.84. BNP 78, total cholesterol 145, triglycerides 318, HDL 34, LDL 47. TSH 1.20. D-dimer ranged between 1.43 to 2.13. COVID-19 PCR positive on 10/04/2019. Portable chest x-ray dated 10/04/2019, showed no acute cardiopulmonary process. HOSPITAL COURSE: The patient was admitted to the COVID unit after presenting with generalized weakness with worsening cough and shortness of breath. The patient was initially evaluated in the emergency room and noted in atrial fibrillation with variable rate. The patient was placed on subcutaneous Lovenox and evaluated by the Cardiology Service. The patient received initial treatment, however, developed bradycardia after rate control measures. The patient was discontinued on all beta kevin and AV shanna blocking therapy with overall stabilization of heart rate in the 50 to 60 range. The patient was considered for potential pacemaker placement, however, stabilized without acute intervention with recommendations for outpatient followup and long-term monitoring. The patient did receive symptomatic and supportive management for COVID-19 including antibiotics and dexamethasone. The patient clinically improved with supportive management and maintained O2 saturations in the upper 90% range on room air. The patient did receive potassium supplementation due to hypokalemia, but overall stabilized with medical therapy. I have examined the patient at the time of discharge and discussed followup instructions. The patient verbalizes understanding and agreement, ready for discharge on 10/09/2019. DISCHARGE MEDICATIONS: 1. Vitamin D3 of 1000 units p.o. daily. 2. Nexium 40 mg p.o. daily. 3. Zetia 10 mg p.o. daily. 4. Lasix 40 mg p.o. daily. 5. [place] 7.5/325 mg 1 tablet p.o. q.6 hours p.r.n. pain. 6. Levothyroxine 75 mcg p.o. daily. 7. Crestor 10 mg p.o. daily. 8. Zoloft 100 mg p.o. b.i.d. 9. Tizanidine 4 mg p.o. t.i.d. p.r.n. 10. Eliquis 5 mg p.o. b.i.d. 11. Vitamin C 1000 mg p.o. daily. 12. Dexamethasone 6 mg p.o. daily x5 days. 13. Hydralazine 25 mg p.o. b.i.d. 14. Lisinopril 10 mg p.o. daily. 15. Potassium chloride 20 mEq p.o. b.i.d. 16. Zinc sulfate 220 mg p.o. daily. FOLLOWUP: The patient may follow up with her primary care provider, Dr. Castillo in [place], [place]. The patient may follow up with Dr. Felipe Torres with [facility] and to call his office for appointment time and date. CONDITION ON DISCHARGE: Stable. ACTIVITY: Ad-jalen. DIET: Heart healthy. CODE STATUS: Full. DISPOSITION: To home on 10/09/2019. TIME SPENT: Total time preparing and coordinating discharge, 33 minutes. Job ID: [id number]
--- NOTE | 2019-10-10 10:06 | EKG ---
Test Reason : STAT Blood Pressure : / mmHG Vent. Rate : 039 BPM Atrial Rate : 039 BPM P-R Int : 212 ms QRS Dur : 096 ms QT Int : 568 ms P-R-T Axes : 065 -21 022 degrees QTc Int : 457 ms Marked sinus bradycardia with 1st degree A-V block Anterior infarct (cited on or before 04-OCT-2019) Abnormal ECG When compared with ECG of 04-OCT-2019 12:37, (Unconfirmed) Sinus rhythm has replaced Atrial fibrillation Vent. rate has decreased BY 47 BPM QRS duration has increased Serial changes of Anterior infarct Present Confirmed by CATIE TROTTER (2) on 10/10/2019 10:06:11 AM Referred By: KELVIN Confirmed By:CATIE TROTTER
--- NOTE | 2019-10-11 05:27 | PQF ---
PERCY GIRALDO CHARLES DO [id number] CLINICAL DOCUMENTATION CLARIFICATION FORM: POST DISCHARGE Addendum to original discharge summary date: ____ Late entry note date: __ DATE:10/11/2019 ATTN: Ruiz Jean-Baptiste Please exercise your independent, professional judgment in responding to the clarification form. Clinical indicators are provided on the bottom of this form for your review COVID 19 virus with associated manifestations: (please check all that apply) [ ] Pneumonia [ x ] No other associated manifestations [ ] Other diagnosis [ ] Unable to determine For continuity of documentation, please document condition throughout progress notes and discharge summary. Thank You. CLINICAL INDICATORS - SIGNS / SYMPTOMS / LABS Laboratory 10/03 WBC 4.0, Plt count 180, Neutrophils 67.3 Vital signs 10/03 BP 118/64, Pulse 98, Resp 29, Temp 98.8 Covid 19 PCR 10/03 Positive Chest X-ray 10/03 Impression: there is no evidence of consolidation, mass or pleural effusion H&P p1 10/03 [place] [employer] presented after being sick with a cough lsat week H&P p1 10/03 [place] [employer] Malaise, acute HPN p2 10/04 Dr Royal Covid-19 infection HPN p1 10/07 Dr Mcclure f/u for Covid PNA PN 10/04 Respiratory:rales Consult 10/05 her bradycardia may be related to the Covid RISK FACTORS H&P p1 10/03 - 73 year-old Female H&P p1 10/03 - HTN HPN p2 10/04 - Covid-19 TREATMENTS JUN 10 IV Decadron 10 mg JUN 10 IV NS 1L Covid 19 PCR 10/03 ordered Chest-Xray 10/03 Ordered Respiratory panel 10/03 Oxygen 2L (This form is maintained as a part of the permanent medical record) 2014 [employer] All Rights Reserved [employer]
== END 2019-10-09 16:28 | disposition home or self-care (01) | DRG 178 ==
LOC: ERS 11:53 → ERHOLD 15:16 → 2SW 22:32
PROVIDERS: ADMIT Emergency Medicine; ATTEND Emergency Medicine
PROC: 8E0ZXY6 Isolation (ICD-10-PCS; principal; 2019-10-04)
DX: U07.1 COVID-19 (principal); N17.9 Acute kidney failure, unspecified; I48.0 Paroxysmal atrial fibrillation; E03.9 Hypothyroidism, unspecified; I49.5 Sick sinus syndrome; E87.6 Hypokalemia; I10 Essential (primary) hypertension; E78.00 Pure hypercholesterolemia, unspecified; E78.5 Hyperlipidemia, unspecified; Z88.1 Allergy status to other antibiotic agents; Z90.49 Acquired absence of other specified parts of digestive tract; Z79.899 Other long term (current) drug therapy; Z90.710 Acquired absence of both cervix and uterus
CPT/HCPCS: 36415; 36416; 71045; 80048; 80053; 80061; 81003; 82553; 82565; 82728; 83605; 83735; 83880; 84443; 84484; 85014; 85018; 85025; 85049; 85379; 86140; 87635; 93005; 93010; 94760; 96372; J1100; J1650; J8540; U0003

== ENCOUNTER 2020-07-30 13:55 | Outpatient (CLI) | payer MEDICARE, OTHER | END 2020-07-30 13:56 | disposition home or self-care (01) | LOC: BICULT 13:55 | PROVIDERS: ATTEND Nurse Practitioner Family | DX: I10 Essential (primary) hypertension (principal) | CPT/HCPCS: 76770 ==

== ENCOUNTER 2020-12-11 13:06 | Outpatient (CLI) | payer MEDICARE, OTHER ==
[~2020-12-11 13:06] MED LIST: Magnevist 469MG/ML 20 ML VIAL ONE
== END 2020-12-11 13:07 | disposition home or self-care (01) ==
LOC: TBSIIMAG 13:06
PROVIDERS: ATTEND Neurological Surgery
DX: D35.2 Benign neoplasm of pituitary gland (principal); G93.9 Disorder of brain, unspecified
CPT/HCPCS: 70553; 82565; A9579

== ENCOUNTER 2024-02-27 23:38 | Inpatient (IN) | payer MEDICARE, OTHER ==
[2024-02-28 01:07] LABS: #Basophils 0.04 10x3/uL (0.0-0.2); %Basophils 0.7 % (0.0-1.0); %Eosinophils 4.5 % (0.0-10.0); %Lymphocytes 39.9 % (21.0-51.0); %Monocytes 7.3 % (0.0-10.0); %Neutrophils 47.4 % (42.0-75.0); Hematocrit 38.5 % (36.0-47.0); Hemoglobin 12.8 g/dL (12.0-16.0); Mean Corpuscular HGB CONC 33.2 g/dL (32.0-36.0); Mean Corpuscular Hemoglobin 28.5 pg (27.0-31.0); Mean Corpuscular Volume 85.7 fL (78.0-98.0); Mean Platelet Volume 10.4 fL (7.4-10.4); Platelet Count 188 10x3/uL (130-400); RBC Distribution Width 15.5 % (11.5-14.5); Red Blood Cell (RBC) Count 4.49 mill/uL (4.20-5.40)
[2024-02-28 01:10] LABS: Actual Bicarbonate (HCO3v) 21.1 mEq/L (22-28); Base Excess -3.6 mEq/L (-2.0 to +3.0); Calcium, Ionized (venous) 1.06 mmol/L (1.16-1.32); Chloride (VBG) 108 mmol/L (98-106); Hematocrit-VBG 42 % (36.0-47.0); Hemoglobin (Hb) 14.3 g/dL (11.7-16.1); Potassium (VBG) 3.83 mmol/L (3.70-5.30); Sodium 142 mmol/L (133-146); pH (venous) 7.369 (7.32-7.43)
[2024-02-28 01:25] LABS: ALT (SGPT) 15 U/L (8-55); AST (SGOT) 34 U/L (5-34); Albumin 3.5 g/dL (3.4-4.8); Alkaline Phosphatase 71 U/L (40-110); Anion Gap 14 mmol/L (10-20); BUN (Urea Nitrogen) 14 mg/dL (9.8-20.1); Bilirubin, Total 0.6 mg/dL (0.2-1.2); Calc. Creatinine Clearance 0 mL/min (70-130); Calcium 8.7 mg/dL (7.8-10.44); Carbon Dioxide 20 mmol/L (23-31); Chloride 109 mmol/L (98-107); Estimated GFR 89; Glucose 87 mg/dL (83-110); Magnesium 2.1 mg/dL (1.6-2.6); Potassium 3.7 mmol/L (3.5-5.1); Protein, Total 6.5 g/dL (5.8-8.1); Sodium 139 mmol/L (136-145)
[2024-02-28 01:26] LABS: Acetaminophen Less than 10 mcg/mL (Less than 10); Alcohol Less than 10.0 mg/dL (Less than 10); Salicylate Less than 8.0 mg/dL (Less than 8.0)
[2024-02-28 01:30] LABS: Prothrombin Time 13.2 sec (12.0-14.7)
[2024-02-28 01:31] LABS: PTT 40.6 sec (22.9-36.1)
[2024-02-28 01:37] LABS: Troponin I 0.046 ng/mL (< 0.028)
[2024-02-28] MEDS ORDERED: Acetaminophen 325 MG TAB PO PRN (02:45)
[2024-02-28] MEDS ORDERED: Ondansetron ODT 4 MG TAB PO PRN (02:45)
[2024-02-28] MEDS ORDERED: hydrALAZINE 20 MG/ML VIAL SLOW IVP PRN (02:48)
[2024-02-28 03:35] LABS: Amphetamine Not Detected (NotDetected); Barbiturates Screen Not Detected (NotDetected); Benzodiazepine Screen Not Detected (NotDetected); Cocaine Metabolite Screen Not Detected (NotDetected); Methadone Not Detected (NotDetected); Methamphetamine Not Detected (NotDetected); Opiate Screen Detected (NotDetected); Oxycodone Screen Not Detected (NotDetected); Phencyclidine (PCP) Not Detected (NotDetected); THC/Cannabinoid Screen Not Detected (NotDetected); Tricyclic Screen Not Detected (NotDetected)
[2024-02-28] MEDS ORDERED: Aspirin Chewable 81 MG TAB ONE (04:01)
[2024-02-28] MEDS ORDERED: hydrALAZINE 20 MG/ML VIAL ONE (04:01)
[2024-02-28 05:16] LABS: #Basophils 0.05 10x3/uL (0.0-0.2); %Basophils 0.8 % (0.0-1.0); %Eosinophils 3.9 % (0.0-10.0); %Lymphocytes 31.9 % (21.0-51.0); %Monocytes 7.1 % (0.0-10.0); %Neutrophils 56.1 % (42.0-75.0); Hematocrit 41.3 % (36.0-47.0); Hemoglobin 13.7 g/dL (12.0-16.0); Mean Corpuscular HGB CONC 33.2 g/dL (32.0-36.0); Mean Corpuscular Hemoglobin 27.7 pg (27.0-31.0); Mean Corpuscular Volume 83.6 fL (78.0-98.0); Mean Platelet Volume 9.7 fL (7.4-10.4); Platelet Count 159 10x3/uL (130-400); RBC Distribution Width 15.5 % (11.5-14.5); Red Blood Cell (RBC) Count 4.94 mill/uL (4.20-5.40)
[2024-02-28 05:20] LABS: Hemoglobin A1c 4.8 % (4.0-6.0)
[2024-02-28 05:30] LABS: ALT (SGPT) 18 U/L (8-55); AST (SGOT) 46 U/L (5-34); Albumin 3.7 g/dL (3.4-4.8); Alkaline Phosphatase 72 U/L (40-110); Anion Gap 15 mmol/L (10-20); BUN (Urea Nitrogen) 12 mg/dL (9.8-20.1); Bilirubin, Total 0.6 mg/dL (0.2-1.2); Calc. Creatinine Clearance 0 mL/min (70-130); Calcium 9.2 mg/dL (7.8-10.44); Carbon Dioxide 20 mmol/L (23-31); Cardiac Risk 2.8 (Less than 4.5); Chloride 110 mmol/L (98-107); Cholesterol 153 mg/dl (< 200 Desired); Estimated GFR 89; Globulin 3.2 g/dL (2.4-3.5); Glucose 87 mg/dL (83-110); HDL Cholesterol 55 mg/dL (>60 Neg Risk); LDL Cholesterol, Calculated 65 mg/dL; Potassium 3.5 mmol/L (3.5-5.1); Protein, Total 6.9 g/dL (5.8-8.1); Sodium 141 mmol/L (136-145); Triglycerides 165 mg/dL (Less than 150); Troponin I 0.137 ng/mL (< 0.028)
[2024-02-28] MEDS: Levothyroxine Sodium 125 MCG TAB PO SCH (05:47)
[2024-02-28] MEDS: traMADol HCl 50 MG TAB PO PRN (05:47)
[2024-02-28] MEDS: Ondansetron PF 4 MG/2 ML Vial IVP PRN (05:48)
[2024-02-28] MEDS ORDERED: hydrALAZINE 20 MG/ML VIAL SLOW IVP SCH (06:15)
[2024-02-28] MEDS: HYDROcodone/Acetaminophen 10/325 mg Tablet PO SCH (06:18)
[2024-02-28 06:32] VITALS: BMI 35.2
[2024-02-28] MEDS: NIFEdipine XL 60 MG ER.TAB PO SCH (06:34)
[2024-02-28 07:41] LABS: Troponin I 0.263 ng/mL (< 0.028)
[2024-02-28] MEDS ORDERED: Iopamidol-370 76% 500 ML MDV (1 ML CHARGE) ONE (08:19)
[2024-02-28] MEDS: Isosorbide Mononitrate 30 MG ER.TAB PO SCH (09:00)
[2024-02-28] MEDS: Lisinopril 10 MG TAB PO SCH (09:00)
[2024-02-28] MEDS ORDERED: Pregabalin 75 MG CAP PO SCH (09:00)
[2024-02-28] MEDS ORDERED: Topiramate 25 MG TAB PO SCH (09:00)
[2024-02-28] MEDS: Topiramate 25 MG TAB PO SCH (11:00)
[2024-02-28] MEDS: Famotidine/PF 20 mg/2ml Vial SLOW IVP SCH (12:25)
[2024-02-28] MEDS: pyridOXINE 50 MG (B6) TAB PO SCH (12:26)
[2024-02-28] MEDS: Torsemide 20 MG TAB PO SCH (12:26)
[2024-02-28] MEDS: Aspirin 81 mg Enteric Coated Tablet PO SCH (12:26)
[2024-02-28] MEDS: Sertraline 100 MG TAB PO SCH (12:27)
[2024-02-28] MEDS: Ezetimibe 10 MG TAB PO SCH (12:27)
[2024-02-28] MEDS: Pregabalin 75 MG CAP PO SCH (12:29)
[2024-02-28] MEDS: HYDROcodone/Acetaminophen 10/325 mg Tablet PO PRN (18:02)
[2024-02-28] MEDS: Rosuvastatin 20 MG TAB PO SCH (20:18)
[2024-02-28] MEDS: Atorvastatin Calcium 40 MG TAB PO SCH (20:18)
[2024-02-29 01:44] LABS: Influenza A by NAA Not Detected (NotDetected); Influenza B by NAA Not Detected (NotDetected); RSV by NAA Not Detected (NotDetected); SARS-CoV-2 NAA Rapid Test Not Detected (NotDetected)
[2024-02-29 03:50] LABS: #Basophils 0.05 10x3/uL (0.0-0.2); %Basophils 0.8 % (0.0-1.0); %Eosinophils 4.2 % (0.0-10.0); %Lymphocytes 39.7 % (21.0-51.0); %Neutrophils 46.1 % (42.0-75.0); Hematocrit 35.8 % (36.0-47.0); Hemoglobin 11.5 g/dL (12.0-16.0); Mean Corpuscular HGB CONC 32.1 g/dL (32.0-36.0); Mean Corpuscular Hemoglobin 27.5 pg (27.0-31.0); Mean Corpuscular Volume 85.6 fL (78.0-98.0); Platelet Count 178 10x3/uL (130-400); RBC Distribution Width 16.2 % (11.5-14.5); Red Blood Cell (RBC) Count 4.18 mill/uL (4.20-5.40)
[2024-02-29 04:13] LABS: Anion Gap 13 mmol/L (10-20); BUN (Urea Nitrogen) 20 mg/dL (9.8-20.1); Calc. Creatinine Clearance 48 mL/min (70-130); Calcium 8.6 mg/dL (7.8-10.44); Carbon Dioxide 24 mmol/L (23-31); Chloride 107 mmol/L (98-107); Estimated GFR 39; Glucose 81 mg/dL (83-110); Potassium 3.3 mmol/L (3.5-5.1); Sodium 141 mmol/L (136-145)
[2024-02-29] MEDS ORDERED: NIFEdipine XL 60 MG ER.TAB PO SCH (09:00)
[2024-02-29] MEDS: Lactated Ringer's 1,000 ML IV SCH (10:02)
[2024-02-29] MEDS: Potassium Chloride 20 MEQ TAB PO SCH (10:02)
[2024-02-29] MEDS: Famotidine 20 MG TAB PO SCH (10:03)
[2024-02-29 10:19] LABS: Hematocrit 38.5 % (36.0-47.0); Hemoglobin 12.3 g/dL (12.0-16.0); Mean Corpuscular HGB CONC 31.9 g/dL (32.0-36.0); Mean Corpuscular Hemoglobin 27.6 pg (27.0-31.0); Mean Corpuscular Volume 86.3 fL (78.0-98.0); Mean Platelet Volume 10.2 fL (7.4-10.4); Platelet Count 171 10x3/uL (130-400); RBC Distribution Width 16.3 % (11.5-14.5); Red Blood Cell (RBC) Count 4.46 mill/uL (4.20-5.40)
[2024-02-29 10:37] LABS: Anion Gap 14 mmol/L (10-20); BUN (Urea Nitrogen) 22 mg/dL (9.8-20.1); Calc. Creatinine Clearance 55 mL/min (70-130); Calcium 8.7 mg/dL (7.8-10.44); Carbon Dioxide 25 mmol/L (23-31); Chloride 106 mmol/L (98-107); Estimated GFR 47; Glucose 77 mg/dL (83-110); Potassium 3.5 mmol/L (3.5-5.1); Sodium 141 mmol/L (136-145)
[2024-02-29 10:59] LABS: Troponin I 0.095 ng/mL (< 0.028)
[2024-02-29] MEDS: Apixaban 5 MG TAB PO SCH (20:59)
[2024-03-01 04:45] LABS: #Basophils 0.06 10x3/uL (0.0-0.2); %Basophils 1.1 % (0.0-1.0); %Eosinophils 7.5 % (0.0-10.0); %Lymphocytes 41.6 % (21.0-51.0); %Monocytes 8.9 % (0.0-10.0); %Neutrophils 40.5 % (42.0-75.0); Mean Corpuscular HGB CONC 32.4 g/dL (32.0-36.0); Mean Corpuscular Hemoglobin 27.8 pg (27.0-31.0); Mean Corpuscular Volume 86.1 fL (78.0-98.0); Mean Platelet Volume 10.3 fL (7.4-10.4); Platelet Count 169 10x3/uL (130-400); RBC Distribution Width 16.3 % (11.5-14.5); Red Blood Cell (RBC) Count 3.95 mill/uL (4.20-5.40)
[2024-03-01 05:01] LABS: Anion Gap 12 mmol/L (10-20); BUN (Urea Nitrogen) 31 mg/dL (9.8-20.1); Calc. Creatinine Clearance 59 mL/min (70-130); Calcium 8.7 mg/dL (7.8-10.44); Carbon Dioxide 24 mmol/L (23-31); Chloride 108 mmol/L (98-107); Estimated GFR 50; Glucose 88 mg/dL (83-110); Magnesium 2.1 mg/dL (1.6-2.6); Potassium 3.8 mmol/L (3.5-5.1); Sodium 140 mmol/L (136-145)
[2024-03-01] MEDS: Azithromycin 250 MG TAB PO SCH (15:23)
[2024-03-01] MEDS: cefTRIAXone\\ROCEPHIN 1 GM in Sodium Chloride 0.9% 100 ML IVPB SCH (15:24)
[2024-03-01 17:59] VITALS: TEMP 97.8
[2024-03-01] MEDS: Lisinopril 10 MG TAB PO SCH (21:17)
[2024-03-01 21:24] VITALS: BP 194/71
[2024-03-02] MEDS ORDERED: Ondansetron PF 4 MG/2 ML Vial ONE (04:11)
[2024-03-02] MEDS ORDERED: hydrALAZINE 20 MG/ML VIAL ONE (04:11)
[2024-03-02] MEDS ORDERED: Levothyroxine Sodium 125 MCG TAB ONE (06:11)
[2024-03-02] MEDS ORDERED: Ezetimibe 10 MG TAB ONE (08:11)
[2024-03-02] MEDS ORDERED: pyridOXINE 50 MG (B6) TAB ONE (08:11)
[2024-03-02] MEDS ORDERED: HYDROcodone/Acetaminophen 10/325 mg Tablet ONE ×3 (08:11→21:11)
[2024-03-02] MEDS ORDERED: Lisinopril 10 MG TAB ONE ×2 (08:11→21:11)
[2024-03-02] MEDS ORDERED: Topiramate 25 MG TAB ONE ×2 (08:11→21:11)
[2024-03-02] MEDS ORDERED: Pregabalin 75 MG CAP ONE ×2 (08:11→21:11)
[2024-03-02] MEDS ORDERED: Apixaban 5 MG TAB ONE ×2 (08:11→21:11)
[2024-03-02] MEDS ORDERED: Sertraline 100 MG TAB ONE (08:11)
[2024-03-02] MEDS ORDERED: Isosorbide Mononitrate 30 MG ER.TAB ONE (08:11)
[2024-03-02] MEDS ORDERED: Amlodipine 5 MG TAB ONE (08:11)
[2024-03-02] MEDS ORDERED: Isosorbide Mononitrate 60 MG ER.TAB ONE (09:11)
[2024-03-02] MEDS ORDERED: Carvedilol 25 MG TAB ONE (09:11)
[2024-03-02] MEDS ORDERED: Amiodarone 200 MG TAB ONE (09:11)
[2024-03-02] MEDS ORDERED: Pantoprazole 40 MG VIAL ONE (09:11)
[2024-03-02] MEDS ORDERED: cefTRIAXone (ROCEPHIN) 1 GM VIAL ONE (14:41)
[2024-03-02] MEDS ORDERED: Azithromycin 250 MG TAB ONE (14:41)
[2024-03-02] MEDS ORDERED: Acetaminophen 325 MG TAB ONE (16:50)
[2024-03-02] MEDS ORDERED: Famotidine 20 MG TAB ONE ×2 (20:08→21:11)
[2024-03-02] MEDS ORDERED: Rosuvastatin 20 MG TAB ONE (21:11)
[2024-03-02] MEDS ORDERED: Atorvastatin Calcium 40 MG TAB ONE (21:11)
[2024-03-03] MEDS ORDERED: Levothyroxine Sodium 125 MCG TAB ONE (06:10)
[2024-03-03] MEDS ORDERED: Famotidine 20 MG TAB ONE ×2 (10:12→10:31)
[2024-03-03] MEDS ORDERED: Amlodipine 5 MG TAB ONE ×2 (10:25→10:33)
[2024-03-03] MEDS ORDERED: Isosorbide Mononitrate 30 MG ER.TAB ONE ×2 (10:25→10:33)
[2024-03-03] MEDS ORDERED: Apixaban 5 MG TAB ONE (10:31)
[2024-03-03] MEDS ORDERED: pyridOXINE 50 MG (B6) TAB ONE (10:31)
[2024-03-03] MEDS ORDERED: Pregabalin 75 MG CAP ONE (10:31)
[2024-03-03] MEDS ORDERED: Topiramate 25 MG TAB ONE (10:31)
[2024-03-03] MEDS ORDERED: Sertraline 100 MG TAB ONE (10:33)
[2024-03-03] MEDS ORDERED: Lisinopril 10 MG TAB ONE (10:33)
[2024-03-03] MEDS ORDERED: Ezetimibe 10 MG TAB ONE (10:33)
[2024-03-03] MEDS ORDERED: Acetaminophen 325 MG TAB ONE (10:33)
[2024-03-03] MEDS ORDERED: Azithromycin 250 MG TAB ONE (13:45)
[2024-03-13 15:43] LABS: Anion Gap 10 mmol/L (10-20); BUN (Urea Nitrogen) 20 mg/dL (9.8-20.1); Calc. Creatinine Clearance 81 mL/min (70-130); Carbon Dioxide 25 mmol/L (23-31); Chloride 109 mmol/L (98-107); Estimated GFR 74; Potassium 3.7 mmol/L (3.5-5.1); Sodium 140 mmol/L (136-145)
[2024-03-13 15:44] LABS: Calcium 8.7 mg/dL (7.6-10.4); Glucose 88 mg/dL (83-110); Hematocrit 33.8 % (36.0-47.0); Hemoglobin 10.9 g/dL (12.0-16.0); Mean Corpuscular Volume 85.8 fL (78.0-98.0); Red Blood Cell (RBC) Count 3.94 mill/uL (4.20-5.40)
[2024-03-13 15:45] LABS: #Basophils 0.04 10x3/uL (0.0-0.2); %Basophils 0.7 % (0.0-1.0); %Eosinophils 8.1 % (0.0-10.0); %Monocytes 9.3 % (0.0-10.0); %Neutrophils 40.7 % (42.0-75.0); Mean Corpuscular HGB CONC 32.2 g/dL (32.0-36.0); Mean Corpuscular Hemoglobin 27.7 pg (27.0-31.0); Mean Platelet Volume 10.4 fL (7.4-10.4); Platelet Count 166 10x3/uL (130-400); RBC Distribution Width 15.8 % (11.5-14.5)
== END 2024-03-03 15:57 | disposition home or self-care (01) | DRG 70 ==
LOC: ERS 23:38 → 2SE 02-28 05:37 → OBSVTOIN 03-01 10:22
PROVIDERS: ADMIT Internal Medicine; ATTEND Student in an Organized Health Care Education/Training Program
DX: G93.41 Metabolic encephalopathy (principal); I16.1 Hypertensive emergency; J18.9 Pneumonia, unspecified organism; N17.9 Acute kidney failure, unspecified; I24.89 Other forms of acute ischemic heart disease; I10 Essential (primary) hypertension; E78.5 Hyperlipidemia, unspecified; E03.9 Hypothyroidism, unspecified; R00.0 Tachycardia, unspecified; I48.0 Paroxysmal atrial fibrillation; E86.0 Dehydration; F32.A Depression, unspecified; M10.9 Gout, unspecified; Z90.49 Acquired absence of other specified parts of digestive tract; Z90.710 Acquired absence of both cervix and uterus; K21.9 Gastro-esophageal reflux disease without esophagitis; Z79.890 Hormone replacement therapy
CPT/HCPCS: 0241U; 36415; 51701; 70496; 70498; 70551; 71045; 71250; 80048; 80053; 80061; 80306; 80307; 82805; 83036; 83735; 83880; 84443; 84484; 85025; 85610; 85730; 93005; 93010; 93306; 96374; 96375; G0378; J0360; J0696; J2405; J2470; J3490; J7120